=== PATIENT | female | born 1955 | race Caucasian/White ===

== ENCOUNTER → 2016-10-27 | Outpatient (CLI) | payer MEDICARE ==
--- NOTE | 2016-11-03 12:54 | EM ---
DATE OF SERVICE: 10/27/2016 AGE: 60Y SEX: F INDICATIONS: DCG This is a 24-hour Holter monitor. The patient was monitored for 24 hours. The baseline rhythm appeared to be a sinus mechanism with minimal heart rate of 52 beats per minute, max heart 148 beats per minute and average heart rate of 78 beats per minute. Ventricular ectopic events were not reported. Supraventricular ectopic events were reported in less than 1% of the total beats count. There is no evidence of sinus pause or sinus arrest. CONCLUSION: 1. The patient was monitored for 24 hours. 2. Sinus rhythm as a baseline mechanism. 3. No evidence of ventricular ectopic event seen. 4. Rare supraventricular events. 5. There is no evidence of sinus arrest or sinus pause. 6. There is no evidence of any sustained tachy or melania arrhythmia.
== END | disposition home or self-care (01) ==
LOC: RADECHMAIN 12:19
PROVIDERS: ATTEND Family Medicine
DX: R00.2 Palpitations (principal)
CPT/HCPCS: 93225; 93226

== ENCOUNTER → 2016-12-24 | Outpatient (CLI) | payer MEDICARE | END | disposition home or self-care (01) | LOC: RADPETMAIN 09:11 | PROVIDERS: ATTEND Radiology Diagnostic Radiology | DX: Z53.9 Procedure and treatment not carried out, unspecified reason (principal) ==

== ENCOUNTER → 2016-12-31 | Outpatient (CLI) | payer MEDICARE ==
--- NOTE | 2017-01-02 12:21 | PE ---
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 Delayed scanning was performed from the skull base to the mid thighs. Localization and attenuation correction CT scan was performed. Correlation to prior nuclear medicine PET/CT 24/06/2015 Neck and chest: There is no suspicious hypermetabolic uptake. No evident adenopathy. No evident lung mass. Abdomen pelvis: No evident retroperitoneal adenopathy. Patient is post cholecystectomy. Some mild thi ckening along the rectum is indeterminate. There is no suspicious hypermetabolic uptake, no evident adenopathy. IMPRESSION: No evident recurrence, correlate clinically at the rectum for recurrence.
== END | disposition home or self-care (01) ==
LOC: RADPETMAIN 07:47
PROVIDERS: ATTEND Radiology Diagnostic Radiology
DX: C20 Malignant neoplasm of rectum (principal)
CPT/HCPCS: 78815; A9552

== ENCOUNTER → 2017-01-17 | Outpatient (CLI) | payer MEDICARE ==
--- NOTE | 2017-01-17 11:58 | BD ---
EXAMINATION TYPE: MG DEXA axial skeleton. DATE OF EXAM: 01/17/2017 CLINICAL HISTORY: Z13.820 Screening for osteoporosis Height: 64.5 inches Weight: 207 FRAX RISK QUESTIONS: Alcohol (3 or more units per day): no Family History (Parent hip fracture): no Glucocorticoids (More than 3mos): rarely..a couple times a year, or less for bronchitis (Ex: prednisone, prednisolone, methylprednisolone, dexamethasone, and hydrocortisone). History of Fracture in Adulthood: yes, ankle about 25 years ago Secondary Osteoporosis: 1. Type 1 Diabetes: no 2. Hyperthyroidism: no 3. Menopause before 45: no 4. Malnutrition: no 5. Chronic liver disease: no Rheumatoid Arthritis: no Current Tobacco Use: no RISK FACTORS HISTORY OF: Family History of Osteoporosis: yes Active: yes Diet low in dairy products/other sources of calcium: at least one serving a day Postmenopausal woman: yes Take estrogen and/or progesterone medications: no Lost more than 2 inches in height since high school: unsure;was perhaps 66 inches tall in High School Frequent falls: no Poor Health: no Hyperparathyroidism: no Adrenal Insufficiency: no MEDICATIONS: Prednisone or other steroids: rarely...about twice a year or less for bronchitis How Long: about 5-6 years Thyroid Medications: no Osteoporosis Medications: no Additional Medications: Vitamin D, blood pressure, cholesterol meds Additional History: rectal carcinoma; radiation/chemo EXAM MEASUREMENTS: Bone mineral densitometry was performed using the [employer]. Bone mineral density as measured about the Lumbar spine is: ----- L1-L4(G/cm2): 1.160 T Score Values are as follows: ----- L2: 0.1 ----- L3: -0.4 ----- L4: 0.1 ----- L1-L4: -0.2 Bone mineral density has: Increased 1.1% since study of: 03/24/2011 Bone mineral density about the R hip (g/cm2): 0.939 Bone mineral density about the L hip (g/cm2): 0.915 T Score values are as follows: -----R Neck: -0.7 -----L Neck: -0.9 -----R Total: 0.1 -----L Total: 0.2 Bone mineral density has: Decreased -5.9% since study of: 03/24/2011 IMPRESSION: No evidence for osteoporosis or osteopenia. NOTE: T-SCORE=SD OF THE YOUNG ADULT MEAN.
--- NOTE | 2017-01-18 08:04 | MM ---
Reason for exam: screening (asymptomatic). Last mammogram was performed 5 years and 10 months ago. History: Patient is postmenopausal and has history of other cancer at age 60. Family history of breast cancer in sister at age 42. Reductions of both breasts, 1989. Physical Findings: A clinical breast exam by your physician is recommended on an annual basis and results should be correlated with mammographic findings. MG 3D Screening Mammo W/Cad Bilateral CC and MLO view(s) were taken. Prior study comparison: March 24, 2011, CAD bilateral diagnostic mammogram. May 14, 2007, bilateral screening mammogram w/CAD. There are scattered fibroglandular densities. There is no discrete abnormality. No significant changes when compared with prior studies. ASSESSMENT: Negative, BI-RAD 1 RECOMMENDATION: Routine screening mammogram of both breasts in 1 year.
== END | disposition home or self-care (01) ==
LOC: RADMAMWWP 07:37
PROVIDERS: ATTEND Obstetrics & Gynecology
DX: Z12.31 Encounter for screening mammogram for malignant neoplasm of breast (principal); Z13.820 Encounter for screening for osteoporosis
CPT/HCPCS: 77080; 77063; G0202

== ENCOUNTER → 2017-12-30 | Outpatient (CLI) | payer MEDICARE ==
--- NOTE | 2018-01-02 10:53 | PE ---
EXAMINATION TYPE: PET CT fusion skull to thigh DATE OF EXAM: 12/30/2017 COMPARISON: 12/31/2016 and 10/24/2015 PET/CT HISTORY: Anal squamous cell carcinoma. Last chemotherapy and radiation treatment was 2 years ago. T reatment also includes surgical resection September 2015. TECHNIQUE: Following the intravenous administration of 14.55 mCi of F-18 FDG, whole body images are performed from the skull base to the midthigh. Images are reviewed on the computer in the coronal, a xial, and sagittal planes. Reconstructed rotating images are created on independent workstation and reviewed on the computer. A localization and attenuation correction CT is performed in conjunction with the PET scan. SCAN: Third at this institution FINDINGS: Thoracic background: 1.89 Abdominal background: 3.31 SKULL BASE AND NECK: There is diffuse radiotracer uptake throughout the tongue with a maximum SUV of 3.77. This is likely related to usage during the examination but direct visualization could ensure n o additional pathology. Additionally slightly asymmetric activity within the left torus tubarius has a maximum SUV of 4.11 and could also be assessed with direct visualization. No suspicious adenopathy is seen. CHEST, MEDIASTINUM, AND HILAR REGION: Slight increased activity seen within the right upper extremity medial flexor musculature, and may be related to myositis or muscular usage during the examination. ABDOMEN AND PELVIS: Distal sigmoid colon has a maximum SUV of 5.64 and rectum has a maximum SUV of 3. 6:. Although these values aren't hypermetabolic and may be related to physiologic excretion of contra st. OSSEOUS STRUCTURES: No suspicious hypermetabolic uptake. OTHER CT: No CT mass is seen within the tongue to correspond to the diffuse hypermetabolic uptake. On unenhance d CT the torus tubarius appear unremarkable bilaterally. No sizable adenopathy within the neck. Mild coronary artery calcifications and atheromatous changes of the thoracic aorta are noted. There i s a small hiatal hernia. No pulmonary masses are identified. The unenhanced liver, spleen, and adrena l glands are unremarkable in morphology as is the pancreas. No pancreatic ductal dilatation. Gallblad neelima surgically absent. No nephrolithiasis or hydronephrosis within the kidneys. No greater than 1 cm short axis lymph node within the abdomen or pelvis. Mild abdominal aortic calcifications are noted. Along the left pelvic sidewall there is soft tissue density on series 3 image 211 that is similar to the prior and adjacent to the gonadal vein likely relating to the residual ovarian tissue. Similarly on the right residual ovarian tissue is seen in uterine atrophy is present adjacent to this. Punctate focus of air is seen within the urinary bladder which should be correlated for urinary tract infection with urinalysis or any recent instrumentation. Unenhanced bowel is grossly unremarkable. There is a very small fat filled umbilical hernia with whitlock tases recti. No new suspicious osseous lesions. IMPRESSION: 1. No new findings suspicious for metastasis within the chest, abdomen, or pelvis. 2. Slightly hypermetabolic activity within the rectum and sigmoid colon is favored to relate to physi ologic excretion. Direct visualization could ensure no early recurrence as there is no appreciable or measurable CT mass. No evidence of obstruction. No new adjacent adenopathy or soft tissue mass. 3. Punctate focus of air within the urinary bladder should be correlated with urinalysis to ensure no urinary tract infection and should be correlated with any history of recent instrumentation. 4. Diffuse hypermetabolic activity throughout the tongue likely relates to usage during the examinati on. Additionally there is asymmetric uptake in the left torus tubarius. These are likely incidental f indings however if there is concern further assessment with direct visualization could be performed.
== END | disposition home or self-care (01) ==
LOC: RADPETMAIN 07:08
PROVIDERS: ATTEND Radiology Diagnostic Radiology
DX: R94.8 Abnormal results of function studies of other organs and systems (principal); D01.3 Carcinoma in situ of anus and anal canal; C21.1 Malignant neoplasm of anal canal
CPT/HCPCS: 78815; A9552

== ENCOUNTER → 2018-07-19 | Outpatient (CLI) | payer MEDICARE ==
--- NOTE | 2018-07-23 08:10 | MM ---
Reason for exam: screening (asymptomatic). Last mammogram was performed 1 year and 6 months ago. History: Patient is postmenopausal, has history of colon cancer at age 60, and has history of other cancer at age 60. Family history of breast cancer in sister at age 42. Reductions of both breasts, 1989. Physical Findings: A clinical breast exam by your physician is recommended on an annual basis and results should be correlated with mammographic findings. MG 3D Screening Mammo W/Cad Bilateral CC and MLO view(s) were taken. Prior study comparison: January 17, 2017, bilateral MG 3d screening mammo w/cad. March 24, 2011, CAD bilateral diagnostic mammogram. Focal asymmetry right inner CC and upper left outer breast. ASSESSMENT: Benign, BI-RAD 2 RECOMMENDATION: Routine screening mammogram of both breasts in 1 year.
== END | disposition home or self-care (01) ==
LOC: RADMAMWWP 08:47
PROVIDERS: ATTEND Obstetrics & Gynecology
DX: Z12.31 Encounter for screening mammogram for malignant neoplasm of breast (principal); Z80.3 Family history of malignant neoplasm of breast
CPT/HCPCS: 77063; 77067

== ENCOUNTER → 2020-03-12 | Outpatient (CLI) | payer MEDICARE ==
--- NOTE | 2020-03-12 13:59 | MM ---
Reason for exam: screening (asymptomatic). Last mammogram was performed 1 year and 8 months ago. History: Patient is postmenopausal, has history of colon cancer at age 60, and has history of other cancer at age 60. Family history of breast cancer in sister at age 42. Reductions of both breasts, 1990. Physical Findings: A clinical breast exam by your physician is recommended on an annual basis and results should be correlated with mammographic findings. MG 3D Screening Mammo W/Cad Bilateral CC and MLO view(s) were taken. Prior study comparison: July 19, 2018, bilateral MG 3d screening mammo w/cad. January 17, 2017, bilateral MG 3d screening mammo w/cad. There are scattered fibroglandular densities. Asymmetric breast tissue right breast, stable, medially and in the left upper breast, stable. There is no discrete abnormality. ASSESSMENT: Negative, BI-RAD 1 RECOMMENDATION: Routine screening mammogram of both breasts in 1 year.
== END | disposition home or self-care (01) ==
LOC: RADMAMWWP 10:00
PROVIDERS: ATTEND Obstetrics & Gynecology
DX: Z12.31 Encounter for screening mammogram for malignant neoplasm of breast (principal); Z80.3 Family history of malignant neoplasm of breast
CPT/HCPCS: 77063; 77067

== ENCOUNTER → 2022-09-02 | Outpatient (CLI) | payer MEDICARE ==
--- NOTE | 2022-09-02 10:35 | BD ---
EXAMINATION TYPE: Axial Bone Density DATE OF EXAM: 09/02/2022 CLINICAL HISTORY: 66 years old Female. ICD-10 CODE: N95.1 POST MENOPAUSAL SYMPTOMS Height: 63.75 Weight: 215.1 FRAX RISK QUESTIONS: Alcohol (3 or more units per day): no Family History (Parent hip fracture): no Glucocorticoids (More than 3mos): no History of Fracture in Adulthood: ankle Secondary Osteoporosis: 1. Type 1 Diabetes: no 2. Hyperthyroidism: no 3. Menopause before 45: no 4. Malnutrition: no 5. Chronic liver disease: no Rheumatoid Arthritis: no Current Tobacco Use: no RISK FACTORS HISTORY OF: Hip Fracture (Right/Left): no Spine Fracture: no History of Wrist Fracture: no Surgery to Spine/Hip(right/left)/Wrist (right/left): no Family History of Osteoporosis: mother, maternal grandmother Active: yes Diet low in dairy products/other sources of calcium: yes Postmenopausal woman: no Take estrogen and/or progesterone medications: no Lost more than 2 inches in height since high school: no Frequent falls: no Poor Health: no Hyperparathyroidism: no Adrenal Insufficiency: no MEDICATIONS: Prednisone or other steroids: no Thyroid Medications: no Osteoporosis Medications:no Additional Medications: BP meds, anxiety meds, multi vit, reflux meds, Additional History: Anal Ca. with chemo and radiation 6 years ago EXAM MEASUREMENTS: Bone mineral densitometry was performed using the [employer]. Bone mineral density as measured about the Lumbar spine is: ----- L1-L4(G/cm2): 1.161 T Score Values are as follows: ----- L1: -0.6 ----- L2: 0.0 ----- L3: 0.2 ----- L4: -0.3 ----- L1-L4: -0.2 Z Score Values are as follows: ----- L1: -0.1 ----- L2: 0.5 ----- L3: 0.7 ----- L4: 0.3 ----- L1-L4: 0.4 Bone mineral density has: increased 0.1 % since study of: 01/17/2017 Bone mineral density about the R hip (g/cm2): 1.041 Bone mineral density about the L hip (g/cm2): 1.107 T Score values are as follows: -----R Neck: -0.8 -----L Neck: -0.4 -----R Total: 0.3 -----L Total: 0.8 Z Score values are as follows: -----R Neck: 0.1 -----L Neck: 0.5 -----R Total: 0.8 -----L Total: 1.3 Bone mineral density has: increased 4.7 % since study of: 01/17/2017 FRAX%s: The graph provided illustrates a 12.1 % chance for a major osteoporotic fx and a 0.8% chance for the hips probability for fx in 10 years time. IMPRESSION: Normal (Values between +1 and -1 indicate normal bone mass). Consider repeating this study in 5 year s or sooner if there is some new clinical indication. NOTE: T-SCORE=SD OF THE YOUNG ADULT MEAN.
--- NOTE | 2022-09-05 16:49 | MM ---
Reason for Exam: Screening (asymptomatic). Last mammogram was performed 2 year(s) and 5 month(s) ago. Patient History: Menarche at age 11. First Full-Term at age 16. Postmenopausal. Previous chemotherapy at age 60. 1990, Bilateral Reduction. Sister had breast cancer, age 42. Risk Values: Khushi 5 year model risk: 3.1%. NCI Lifetime model risk: 10.5%. Prior Study Comparison: 01/17/2017 Bilateral Screening Mammogram, [facility]. 07/19/2018 Bilateral Screening Mammogram, [facility]. 03/12/2020 Bilateral Screening Mammogram, [facility]. Tissue Density: There are scattered fibroglandular densities. Findings: Analyzed By CAD. Pattern appears symmetrical and stable. There is a focal asymmetry in the medial right cranial caudal view. No significant interval changes are evident. No suspicious groups of microcalcifications, spiculated or lobular masses, architectural distortion or other secondary signs of malignancy are mammographically apparent. Overall Assessment: Benign, BI-RAD 2 Management: Screening Mammogram of both breasts in 1 year. A negative mammogram report should not preclude additional follow up of suspicious palpable abnormalities. Patient should continue monthly self breast exam. A clinical breast exam by your physician is recommended on an annual basis and results should be correlated with mammographic findings. Electronically signed and approved by: Adama Lopez D.O. Radiologis
== END | disposition home or self-care (01) ==
LOC: RADMAMWWP 07:27
PROVIDERS: ATTEND Obstetrics & Gynecology
DX: Z12.31 Encounter for screening mammogram for malignant neoplasm of breast (principal); N95.1 Menopausal and female climacteric states; Z80.3 Family history of malignant neoplasm of breast
CPT/HCPCS: 77063; 77067; 77080

== ENCOUNTER → 2022-10-27 | Outpatient (CLI) | payer MEDICARE ==
--- NOTE | 2022-10-27 17:53 | US ---
EXAMINATION TYPE: US duplex aorta DATE OF EXAM: 10/27/2022 COMPARISON: NONE CLINICAL INDICATION: Female, 66 years old with history of Z82.49 FAM HX OF ISCHEMIC HERAT DISEASE; Fa elissa history TECHNIQUE: Multiple sonographic images of the abdominal aorta are obtained. FINDINGS: EXAM MEASUREMENTS: Abdominal Aorta: Proximal: 2.2 x 2.6cm Mid: 1.6 x 1.8cm Distal: 1.6 x 1.6cm Bifurcation: RT: 1.0 x 1.3cm LT: 1.0 x 1.2cm CLAIM INSPECTOR NOTES: Visualized portions appear wnl. No evidence of AAA at this time. Ectatic proximal IMPRESSION: Mildly ectatic proximal abdominal aorta at 2.6 cm. No evidence for AAA.
== END | disposition home or self-care (01) ==
LOC: RADUSWWP 09:50
PROVIDERS: ATTEND Family Medicine
DX: I77.811 Abdominal aortic ectasia (principal); Z82.49 Family history of ischemic heart disease and other diseases of the circulatory system
CPT/HCPCS: 76706

== ENCOUNTER → 2023-01-02 | Outpatient (CLI) | payer MEDICARE ==
--- NOTE | 2023-01-02 17:01 | CA ---
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 18 - 58 / 22 - 52 cm??? Ascending Aorta Diameter 3.9 cm M-MODE Aortic Root Diameter MM 3.5 cm LA Systolic Diameter MM 3.1 cm LA Ao Ratio MM 0.9 AV Cusp Separation MM 2.0 cm DOPPLER AV Peak Velocity 107.7 cm/s AV Peak Gradient 4.6 mmHg AV Mean Velocity 78.6 cm/s AV Mean Gradient 2.7 mmHg AV Velocity Time Integral 19.9 cm LVOT Peak Velocity 100.9 cm/s LVOT Peak Gradient 4.1 mmHg LVOT Velocity Time Integral 20.0 cm MV Area PHT 3.7 cm??? Mitral E Point Velocity 52.9 cm/s Mitral A Point Velocity 70.8 cm/s Mitral E to A Ratio 0.7 MV Deceleration Time 204.4 ms LV E' Lateral Velocity 7.7 cm/s Mitral E to LV E' Lateral Ratio 6.9 LV E' Septal Velocity 6.5 cm/s Mitral E to LV E' Septal Ratio 8.1 TR Peak Velocity 226.6 cm/s TR Peak Gradient 20.5 mmHg Right Atrial Pressure 3.0 mmHg Pulmonary Artery Systolic Pressu 23.5 mmHg Right Ventricular Systolic Press 23.5 mmHg FINDINGS Left Ventricle Normal Left ventricular size, wall thickness, systolic function with no obvious regional wall motion abnormalities. Left ventricular ejection fraction is estimated at 55-60%. Right Ventricle Moderate right ventricular dilatation. Right Atrium Normal right atrial size. Left Atrium Normal left atrial size. Mitral Valve Structurally normal mitral valve. No mitral regurgitation. Aortic Valve Trileaflet aortic valve. Thickened aortic valve without stenosis. No aortic regurgitation. Tricuspid Valve Structurally normal tricuspid valve. Trace to mild tricuspid regurgitation. Pulmonic Valve Pulmonic valve not well visualized. Trace pulmonic regurgitation. Pericardium No pericardial effusion. Aorta Mild aortic dilatation at the level of the sinuses of valsalva (root). Mildly dilated proximal ascending aorta (tube). CONCLUSIONS Left ventricular ejection fraction 55-60% Trace to mild tricuspid regurgitation No pericardial effusion Previewed by: Dr. Tra Gonzalez DO (Electronically Signed) Final Date: 02 January 2023 16:59
== END | disposition home or self-care (01) ==
LOC: RADECHMAIN 13:18
PROVIDERS: ATTEND Family Medicine
DX: I71.20 Thoracic aortic aneurysm, without rupture, unspecified (principal); I36.1 Nonrheumatic tricuspid (valve) insufficiency; I37.1 Nonrheumatic pulmonary valve insufficiency
CPT/HCPCS: 93306

== ENCOUNTER → 2023-07-06 | Outpatient (CLI) | payer MEDICARE ==
--- NOTE | 2023-07-06 13:20 | US ---
EXAMINATION TYPE: US duplex aorta DATE OF EXAM: 07/06/2023 COMPARISON: NONE CLINICAL INDICATION: Female, 67 years old with history of I77.811 ABDOMINAL AORTIC ECTASIA; father an d brother have AAA, no symptoms TECHNIQUE: Multiple sonographic images of the abdominal aorta are obtained. FINDINGS: EXAM MEASUREMENTS: Abdominal Aorta: Proximal: 2.6 x 2.3cm Mid: 2.1 x 2.1cm Distal: 1.7 x 2.0cm Bifurcation: Right Iliac: 1.1cm Left Illiac: 1.4cm Slightly echogenic appearance to the liver parenchyma. IMPRESSION: 1. Mild ectasia of the proximal abdominal aorta 2.6 cm. No sonographic evidence for AAA. 2. Incidental colon possible underlying hepatic steatosis.
== END | disposition home or self-care (01) ==
LOC: RADUSWWP 06:46
PROVIDERS: ATTEND Family Medicine
DX: I77.811 Abdominal aortic ectasia (principal)
CPT/HCPCS: 93979

== ENCOUNTER → 2023-09-21 | Outpatient (CLI) | payer MEDICARE ==
--- NOTE | 2023-09-21 10:34 | CA ---
Stress Echo Report [facility] Age: 67 Gender: F : 1955 Exam Date: 09/21/2023 09:33 Exam Location: [place] [facility] Ht (in): 65 Wt (lb): 214 Ordering Physician: Adama Mccall DO Referring Physician: Adama Mccall DO Archeology Faculty Member: NURIS, Technologist Procedure CPT: Indication: R07.89 other chest pain ICD-9 Codes: Rhythm: Patient History: Chest pain, palpitations and hypertension Cardiac Medications: Medications in past 24 hours: Contrast: Stress Results Protocol: Raffaele Total dose(mL): Exercise Duration (min:sec): 7:[address] Depression (mm): Angina Score: Bolaños Score: METS: 8.5 Resting HR: 84 Resting BP: 129 / 94 Peak HR: 150 Peak BP: 155 / 58 Max Predicted HR: 152 99 % Max Predicted HR Target HR: 129 Double Product: [id number] Stress Summary: BP Response: Reason for Termination: MAX EXERTION/TARGET HR Cardiac Symptoms: NO SYMPTOMS ECG Analysis Resting ECG: Normal sinus rhythm normal axis normal intervals Stress ECG: Patient exercised on Raffaele protocol for 7 minutes achieving 85% of predicted maximal heart rate without chest pain or diagnostic ST segment depression Arrhythmia: Echo Analysis Resting Echo: Technically suboptimal study normal left ventricle a size wall motion systolic function Peak Echo Analysis: Normal hyperdynamic response of all segments of myocardium noted MEASUREMENTS (Male/Female) Normal Values CONCLUSIONS Average exercise tolerance Negative stress echo Negative stress test by EKG criteria Dr. Efrain Bailey MD (Electronically Signed) Final Date: 21 September 2023 10:33
== END | disposition home or self-care (01) ==
LOC: RADNMMAIN 09:02
PROVIDERS: ATTEND Family Medicine
DX: R07.89 Other chest pain (principal); I10 Essential (primary) hypertension; R00.2 Palpitations
CPT/HCPCS: 93351